=== PATIENT | female | born 1945 | race Caucasian/White ===

== ENCOUNTER 2020-05-31 00:39 | Emergency (ER) | payer MEDICARE, SELFPAY ==
[2020-05-31] VITALS (8 sets, daily range): BP systolic 140–184; BP diastolic 66–78; PULSE 66–79; RESP 17–18; TEMP 36.4; O2SAT 96–99; BMI 19.0
[2020-05-31] MEDS: SODIUM CHLORIDE 0.9% 1,000 ML 1000 ML IV (00:58)
[2020-05-31 01:08] LABS: Add Manual Diff / Slide Review NO; Basophils Absolute Auto 100 /uL (0-100); Basophils Percent Auto 1.1 % (0-2); Eosinophils Absolute Auto 100 /uL (0-450); Eosinophils Percent Auto 2.6 % (2-4); Hematocrit 37.9 % (36-46); Hemoglobin 12.6 g/dL (12.0-16.0); Lymphocytes Absolute Auto 1200 /uL (1100-4500); Lymphocytes Percent Auto 22.5 % (25-40); Mean Corpuscular HGB Conc 33.2 % (30-36); Mean Corpuscular Hemoglobin 29.1 PG (26-34); Mean Corpuscular Volume 87.7 fL (80-100); Monocytes Absolute Auto 800 /uL (0-900); Monocytes Percent Auto 15.1 % (3-14); Neutrophils Absolute Auto 3100 /uL (1500-7000); Neutrophils Percent Auto 58.7 % (50-75); Platelet Count 398 X10^3/uL (150-400); Red Blood Cell Count 4.32 X10^6/uL (4.0-5.2); Red Cell Distribution Width 12.7 % (11.6-14.8); White Blood Cell Count 5.4 X10^3/uL (4.5-11.0)
[2020-05-31 01:20] LABS: BUN Creatinine Ratio 36.8 (6-22); Blood Urea Nitrogen 21 mg/dL (7-17); Calcium 9.3 mg/dL (8.4-10.2); Carbon Dioxide 26 mmol/L (22-32); Chloride 106 mmol/L (98-107); Creatine Kinase 176 U/L (30-135); Estimated Glomerular Filt Rate > 60.0 mL/min (>60); Glucose 96 mg/dL (80-110); HEMOLYSIS < 15 (0-50); Sodium 138 mmol/L (137-145)
[2020-05-31 01:32] LABS: NT-proBNP (BNP-Adult 18+) 126 pg/mL (<450); Troponin I < 0.012 ng/mL (0.01-0.034)
[2020-05-31 01:38] LABS: Potassium 4.2 mmol/L (3.4-5.1)
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
[2020-05-31 02:04] LABS: CKMB % Relative Index 1.8 % (1.5-5.0); Creatine Kinase MB 3.09 ng/mL (<2.37)
== END 2020-05-31 02:35 | disposition home or self-care (01) ==
PROVIDERS: Emergency Provider Emergency Medicine
DX: R42 Dizziness and giddiness (principal); G47.00 Insomnia, unspecified; F03.90 Unspecified dementia, unspecified severity, without behavioral disturbance, psychotic disturbance, mood disturbance, and anxiety
CPT/HCPCS: 36415; 80048; 81003; 82550; 82553; 82962; 83880; 84484; 85025; 93005; 96360; 99284

== ENCOUNTER → 2020-07-31 12:21 | Outpatient (CLI) | payer MEDICARE, SELFPAY ==
--- NOTE | 2020-07-31 12:32 | DI.RAD.S_ITS ---
PROCEDURE: XR KNEE RT 3V INDICATIONS: RT KNEE PAIN, SWELLING POST FALL TECHNIQUE: 3 views of the knee were acquired. COMPARISON: None. FINDINGS: Bones: No fractures or dislocations. No suspicious bony lesions. There is moderate medial femorotibial joint space narrowing seen, with associated remodeling changes including subchondral sclerosis and osteophyte formation along the jointline. On the sunrise view, there is mild patellofemoral joint space narrowing seen. Osteophyte formation can be seen along the margins of the patella. Soft tissues: There is a small joint effusion. No suspicious soft tissue calcifications. IMPRESSION: Osteoarthritic degenerative changes are seen, which are most prominent involving the medial femorotibial compartment. Small joint effusion. If there is strong clinical suspicion for internal derangement of the knee, please consider a dedicated MRI for further evaluation (assuming that there is no contraindication to MRI). Dictated by: Denzel Boateng M.D. on 07/31/2020 at 12:01 Approved by: Denzel Boateng M.D. on 07/31/2020 at 12:02
== END ==
PROVIDERS: PCP Nurse Practitioner Family; Referring Provider Nurse Practitioner Family; Visit Provider Nurse Practitioner Family
DX: M25.561 Pain in right knee (principal); M25.461 Effusion, right knee
CPT/HCPCS: 73562

== ENCOUNTER 2022-12-20 03:46 | Emergency (ER) | payer MEDICARE, SELFPAY ==
[2022-12-20] VITALS (13 sets, daily range): BP systolic 149–190; BP diastolic 67–87; PULSE 71–84; RESP 18–27; TEMP 36.4–36.5; O2SAT 93–100
--- NOTE | 2022-12-20 03:51 | DI.RAD.S_ITS ---
PROCEDURE: XR CHEST 1V INDICATIONS: chest pain TECHNIQUE: One view of the chest was acquired. COMPARISON: None. FINDINGS: Surgical changes and devices: None. Lungs and pleura: Lungs are clear. No pleural effusions or pneumothorax. Mediastinum: Mediastinal contours appear normal. Heart size is normal. Bones and chest wall: No suspicious bony lesions. Overlying soft tissues appear unremarkable. IMPRESSION: No acute cardiopulmonary process. Agree with preliminary report. Dictated by: Javier Rubio M.D. on 12/20/2022 at 8:02 Approved by: Javier Rubio M.D. on 12/20/2022 at 8:06
[2022-12-20 04:04] LABS: Add Manual Diff / Slide Review NO; Basophils Absolute Auto 100 /uL (0-100); Basophils Percent Auto 0.9 % (0-2); Eosinophils Absolute Auto 300 /uL (0-450); Eosinophils Percent Auto 3.6 % (2-4); Hematocrit 35.6 % (36-46); Hemoglobin 11.3 g/dL (12.0-16.0); Lymphocytes Absolute Auto 1700 /uL (1100-4500); Lymphocytes Percent Auto 21.9 % (25-40); Mean Corpuscular HGB Conc 31.7 % (30-36); Mean Corpuscular Hemoglobin 24.8 PG (26-34); Mean Corpuscular Volume 78.1 fL (80-100); Monocytes Absolute Auto 1000 /uL (0-900); Monocytes Percent Auto 13.2 % (3-14); Neutrophils Absolute Auto 4800 /uL (1500-7000); Neutrophils Percent Auto 60.4 % (50-75); Platelet Count 524 X10^3/uL (150-400); Red Blood Cell Count 4.56 X10^6/uL (4.0-5.2); White Blood Cell Count 7.9 X10^3/uL (4.5-11.0)
[2022-12-20 04:08] LABS: Alanine Aminotransferase 18 IU/L (<35); Albumin 4.9 g/dL (3.5-5.0); Albumin Globulin Ratio 1.4 (1.0-2.8); Alkaline Phosphatase 76 U/L (38-126); Aspartate Aminotransferase 30 IU/L (14-36); BUN Creatinine Ratio 25.9 (6-22); Bilirubin Total 0.7 mg/dL (0.2-1.3); Blood Urea Nitrogen 14 mg/dL (7-17); Calcium 9.6 mg/dL (8.4-10.2); Carbon Dioxide 28 mmol/L (22-32); Chloride 100 mmol/L (98-107); Creatine Kinase 98 U/L (30-135); Estimated Glomerular Filt Rate > 60 mL/min (>60); Globulin 3.5 g/dL (1.7-4.1); Glucose 151 mg/dL (80-110); HEMOLYSIS 49 (0-50); Lipase 74 U/L (23-300); Potassium 4.4 mmol/L (3.4-5.1); Sodium 137 mmol/L (137-145); Total Protein 8.4 g/dL (6.3-8.2)
--- NOTE | 2022-12-20 04:14 | ED_ITS ---
HPI - Chest Pain General Chief Complaint: Chest Pain Stated Complaint: chest pain- sweaty Time Seen by Provider: 12/20/22 03:51 Source: patient and EMS Mode of arrival: EMS Limitations: no limitations History of Present Illness HPI narrative: Patient is a 77-year-old female who has dementia presents today with chest pain. She reports she did not go to sleep she started having left-sided pain. Sharp and stabbing in nature nonradiating. Lasting for about 30 minutes. She was having some shortness of breath and diaphoresis at the time but now is completely resolved. She is repeating the same stories which is normal for her. She received aspirin with EMS. She lives with her and her daughter. Related Data Allergies Allergy/AdvReac Type Severity Reaction Status Date / Time gluten Allergy Verified 05/31/20 01:18 Review of Systems Review of Systems ROS Unobtainable: All systems reviewed & are unremarkable except as noted in HPI and below Patient History Social History Smoking Status: Never smoker Smoking Status: Never smoker Substance Use Type: does not use Exam Initial Vital Signs Initial Vital Signs: Vital Signs Temperature 97.7 F 12/20/22 03:45 Pulse Rate 80 12/20/22 03:45 Respiratory Rate 18 12/20/22 03:45 Blood Pressure 190/87 H 12/20/22 03:45 Pulse Oximetry 99 12/20/22 03:45 Oxygen Delivery Method Room Air 12/20/22 03:45 GENERAL: Alert well-appearing 77-year-old female and in no acute distress. HEENT: Head atraumatic,EOMI, pupils reactive, face symmetric, moist mucous membranes CARDIOVASCULAR: Regular rate and rhythm without murmurs, rubs or gallops. RESPIRATORY: Breath sounds equal bilaterally, no wheezes rales or rhonchi. ABDOMEN: Soft, nontender. Normoactive bowel sounds all 4 quadrants. No guarding or rebound. EXTREMITIES: Normal range of motion, no clubbing or edema. Neurovascularly intact NEUROLOGICAL: Alert and oriented x2. SKIN: Warm, dry, no laceration, no petechiae, no rashes or lesions. Scores HEART Score Heart Score history: Slightly Suspicious Heart Score EKG: Normal Heart Score Age: > or = 65 years old Heart Score risk factors: 1-2 risk factors Heart Score troponin: < or = to normal limit Heart Score Total: 3 Course Orders Ordered: ED Orders 12/20/22 03:50 Complete Blood Count AUTO DIFF Stat Comprehensive Metabolic Panel Stat Lipase Stat Troponin & CK Cardiac Panel Stat 12/20/22 03:51 XR chest 1V Stat EKG-12 Lead Stat 12/20/22 05:50 Trop I [Troponin I] Stat Vital Signs Vital signs: Vital Signs - 8 hr 12/20/22 03:45 12/20/22 03:49 12/20/22 03:49 Temperature 97.7 F Pulse Rate 80 83 Respiratory Rate 18 Blood Pressure 190/87 H 190/83 H Pulse Oximetry 99 99 Oxygen Delivery Method Room Air 12/20/22 04:00 12/20/22 04:00 12/20/22 04:30 Temperature Pulse Rate 82 84 Respiratory Rate 22 18 Blood Pressure 178/69 H Pulse Oximetry 95 93 Oxygen Delivery Method 12/20/22 04:31 12/20/22 04:31 12/20/22 05:00 Temperature Pulse Rate 81 72 Respiratory Rate 27 H 22 Blood Pressure 171/74 H Pulse Oximetry 96 98 Oxygen Delivery Method 12/20/22 05:02 12/20/22 05:02 12/20/22 05:37 Temperature Pulse Rate 73 82 Respiratory Rate 27 H 26 H Blood Pressure 151/72 H Pulse Oximetry 98 100 Oxygen Delivery Method 12/20/22 05:39 12/20/22 05:39 12/20/22 06:00 Temperature Pulse Rate 72 71 Respiratory Rate 20 23 Blood Pressure 184/71 H Pulse Oximetry 99 98 Oxygen Delivery Method 12/20/22 06:01 12/20/22 06:01 12/20/22 06:30 Temperature Pulse Rate 72 Respiratory Rate 22 Blood Pressure 168/74 H 149/67 H Pulse Oximetry 96 Oxygen Delivery Method 12/20/22 06:30 12/20/22 06:44 Temperature 97.5 F L Pulse Rate 75 Respiratory Rate 26 H Blood Pressure Pulse Oximetry 98 Oxygen Delivery Method MDM - Chest Pain Lab Data 12/20/22 03:50 12/20/22 03:50 Labs: Lab Results 12/20/22 12/20/22 12/20/22 Range/Units 03:50 03:50 05:50 WBC 7.9 (4.5-11.0) X10^3/uL RBC 4.56 (4.0-5.2) X10^6/uL Hgb 11.3 L (12.0-16.0) g/dL Hct 35.6 L (36-46) % MCV 78.1 L (80-100) fL MCH 24.8 L (26-34) PG MCHC 31.7 (30-36) % RDW 21.0 H (11.6-14.8) % Plt Count 524 H (150-400) X10^3/uL Neut % (Auto) 60.4 (50-75) % Lymph % (Auto) 21.9 L (25-40) % [place] % (Auto) 13.2 (3-14) % Eos % (Auto) 3.6 (2-4) % Baso % (Auto) 0.9 (0-2) % Neut # (Auto) 4800 (1645-7733) /uL Lymph # (Auto) 1700 (6276-9891) /uL [place] # (Auto) 1000 H (0-900) /uL Eos # (Auto) 300 (0-450) /uL Baso # (Auto) 100 (0-100) /uL RBC Morphology See below Anisocytosis 3+ H Sodium 137 (137-145) mmol/L Potassium 4.4 (3.4-5.1) mmol/L Chloride 100 (98-107) mmol/L Carbon Dioxide 28 (22-32) mmol/L BUN 14 (7-17) mg/dL Creatinine 0.54 (0.52-1.04) mg/dL Estimated GFR > 60 (>60) mL/min BUN/Creatinine Ratio 25.9 H (6-22) Glucose 151 H (80-110) mg/dL Calcium 9.6 (8.4-10.2) mg/dL Total Bilirubin 0.7 (0.2-1.3) mg/dL AST 30 (14-36) IU/L ALT 18 (<35) IU/L Alkaline Phosphatase 76 (38-126) U/L Total Creatine Kinase 98 (30-135) U/L CK-MB (CK-2) TNP CK-MB (CK-2) Rel Index TNP Troponin I < 0.012 < 0.012 (0.01-0.034) ng/mL Total Protein 8.4 H (6.3-8.2) g/dL Albumin 4.9 (3.5-5.0) g/dL Globulin 3.5 (1.7-4.1) g/dL Albumin/Globulin Ratio 1.4 (1.0-2.8) Lipase 74 (23-300) U/L Imaging Data Chest x-ray: My Impression: No acute cardiopulmonary process Radiologist's Impression: No acute cardiopulmonary abnormality ECG Data Interpretation: Sinus rhythm rate 72 [place] interval 120 QRS 74 QTC 420 PVC noted no acute ischemic changes EKG 2. Sinus rhythm no changes MDM Narrative Medical decision making narrative: Patient healthy 77-year-old female history of dementia presenting to chest pain. She is 2- troponins normal EKG heart score is 3. Blood work is otherwise reassuring no leukocytosis anemia electrolyte abnormality or MARICARMEN. She is been chest pain-free and sleeping here in the emergency department. Daughter is at bedside. Patient is not tachycardic or hypoxic. I think unlikely to be low risk for pulmonary embolism, low that was considered. Blood pressure initially quite high 190/87 came down have any intervention. She is an appointment with her primary care provider in a couple of days. Went over with daughter may need further cardiac testing and to return if needed. Able to take her. Differential diagnosis includes acute coronary syndrome, pneumonia, pulmonary embolism, pneumothorax Discharge Plan Departure Patient Disposition: Home Clinical Impression: Atypical chest pain Instructions: DI for Atypical Chest Pain Activity Restrictions/Additional Instructions: *You have been diagnosed with atypical chest pain *What to do: At this time please follow-up with primary care provider. You may require further cardiac testing *Continue to take medications as directed *Follow up with your primary care provider in 2-3 days or call [phone] *Return to ER if you should have increasing chest pain shortness of breath nausea or any new, worsening or concerning symptoms Referrals: Ave Flanagan ARNP [Primary Care Provider] - Stand Alone Forms: Patient Portal/API
[2022-12-20 04:20] LABS: Troponin I < 0.012 ng/mL (0.01-0.034)
[2022-12-20 04:48] LABS: Anisocytosis 3+
[2022-12-20 06:20] LABS: Troponin I < 0.012 ng/mL (0.01-0.034)
== END 2022-12-20 06:45 | disposition home or self-care (01) ==
PROVIDERS: Emergency Provider Emergency Medicine; PCP Nurse Practitioner Family
DX: R07.89 Other chest pain (principal)
CPT/HCPCS: 36415; 71045; 80053; 82550; 83690; 84484; 85025; 93005; 93010; 99283; 99284

== ENCOUNTER 2023-10-13 22:24 | Emergency (ER) | payer MEDICARE, SELFPAY ==
--- NOTE | 2023-10-13 22:30 | ED.GENADULT ---
HPI - General Adult General Chief complaint: Upper Respiratory Symptoms Stated complaint: abd pain Time Seen by Provider: 10/13/23 22:27 History of Present Illness HPI narrative: 78-year-old female with history of dementia presents by EMS from home for upper abdominal pain and possible bloody stools. History obtained from EMS as well as daughter at bedside, as the patient is pleasant but very confused with repetitive questions and thought processes. EMS state that patient called for abdominal pain and bloody stools. She lives in a triplex below her daughter, and as the patient was being loaded onto the stretcher the daughter came outside and asked medics what they were doing. When they told the daughter that the patient was complaining of belly pain and bloody stools the daughter states that patient has dementia, occasionally calls 911 without reason, and sometimes makes things up when she gets confused. Daughter states that family has been with the patient all day long and she has been in good spirits. She has complained of mild upper abdominal pain secondary to a nonproductive cough that she was having, but family reassured the patient that her abdomen was sore from the coughing. Patient was last seen approximately 1.5 hours ago by family and she was in good health at that time. Daughter states that next thing she knows the ambulance has been called. Patient at various times has complained of vomiting blood, having bloody stools, and having blood in her urine. Patient's clothes are clean, there is no blood noted anywhere on the patient's body or on the stretcher. Related Data Home Medications Medication Instructions Recorded Confirmed gabapentin 100 mg capsule 100 mg PO 10/13/23 metformin 500 mg tablet 500 mg PO DAILY 10/13/23 10/13/23 Allergies Allergy/AdvReac Type Severity Reaction Status Date / Time gluten Allergy Verified 05/31/20 01:18 Review of Systems Review of Systems Narrative: Negative except as noted above Patient History Social History Smoking Status: Never smoker Smoking Status: Never smoker Substance Use Type: does not use Exam Initial Vital Signs Initial Vital Signs: Vital Signs Temperature 99.1 F 10/13/23 22:40 Pulse Rate 87 10/13/23 22:40 Respiratory Rate 16 10/13/23 22:40 Blood Pressure 162/87 H 10/13/23 22:40 Pulse Oximetry 98 10/13/23 22:40 Oxygen Delivery Method Room Air 10/13/23 22:40 Const: Awake, alert, no acute distress, nontoxic appearing ENT: Atraumatic, no gross blood, mucous membranes moist Cardiac: regular rate, regular rhythm RESP: unlabored, clear bilaterally, no wheezing GI: Atraumatic, soft, nontender, nondistended, no rebound, no guarding Rectal: nurse buckle frame shaper present, no gross blood, no melena Skin: Warm, Dry, intact, no rashes Neuro: AO x2, CN II-XII grossly intact, moves all extremities Course Orders Ordered: ED Orders 10/13/23 22:50 UA Complete [Urinalysis and Microscopic] Stat Urine Culture Stat 10/13/23 23:01 CT abdomen pelvis w con Stat 10/13/23 23:15 CBC Auto Diff [Complete Blood Count AUTO DIFF] Stat CMP [Comprehensive Metabolic Panel] Stat Vital Signs Vital signs: Vital Signs - 8 hr 10/13/23 22:40 10/13/23 22:43 10/13/23 23:03 Temperature 99.1 F Pulse Rate 87 89 88 Respiratory Rate 16 Blood Pressure 162/87 H Pulse Oximetry 98 100 100 Oxygen Delivery Method Room Air 10/13/23 23:17 10/13/23 23:17 10/13/23 23:30 Temperature Pulse Rate 89 Respiratory Rate Blood Pressure 171/76 H 164/72 H Pulse Oximetry 99 Oxygen Delivery Method 10/13/23 23:30 10/14/23 00:44 Temperature Pulse Rate 89 99 H Respiratory Rate 16 Blood Pressure 171/101 H Pulse Oximetry 99 96 Oxygen Delivery Method Room Air Medical Decision Making Lab Data 10/13/23 23:15 10/13/23 23:15 Labs: Lab Results 10/13/23 10/13/23 Range/Units 22:50 23:15 WBC 10.5 (4.5-11.0) X10^3/uL RBC 4.26 (4.0-5.2) X10^6/uL Hgb 12.4 (12.0-16.0) g/dL Hct 37.2 (36-46) % MCV 87.4 (80-100) fL MCH 29.1 (26-34) PG MCHC 33.2 (30-36) % RDW 13.8 (11.6-14.8) % Plt Count 479 H (150-400) X10^3/uL Neut % (Auto) 74.1 (50-75) % Lymph % (Auto) 12.3 L (25-40) % [place] % (Auto) 10.4 (3-14) % Eos % (Auto) 2.6 (2-4) % Baso % (Auto) 0.6 (0-2) % Neut # (Auto) 7800 H (3761-4393) /uL Lymph # (Auto) 1300 (4007-7553) /uL [place] # (Auto) 1100 H (0-900) /uL Eos # (Auto) 300 (0-450) /uL Baso # (Auto) 100 (0-100) /uL Sodium 137 (137-145) mmol/L Potassium 3.7 (3.4-5.1) mmol/L Chloride 99 (98-107) mmol/L Carbon Dioxide 28 (22-32) mmol/L BUN 14 (7-17) mg/dL Creatinine 0.53 (0.52-1.04) mg/dL Estimated GFR > 60 (>60) mL/min BUN/Creatinine Ratio 26.4 H (6-22) Glucose 223 H (80-110) mg/dL Calcium 9.4 (8.4-10.2) mg/dL Total Bilirubin 0.5 (0.2-1.3) mg/dL AST 29 (14-36) IU/L ALT 18 (<35) IU/L Alkaline Phosphatase 93 (38-126) U/L Total Protein 7.8 (6.3-8.2) g/dL Albumin 4.2 (3.5-5.0) g/dL Globulin 3.6 (1.7-4.1) g/dL Albumin/Globulin Ratio 1.2 (1.0-2.8) Urine Color Yellow Urine Appearance Clear Urine pH 7.0 (4.5-8.0) Ur Specific [place] <=1.005 (1.000-1.035) Urine Protein Negative (Negative) Urine Glucose (UA) 1+ H (Negative) g/dL Urine Ketones Negative (NEGATIVE) Urine Occult Blood Negative (Negative) Urine Nitrate Negative (Negative) Urine Bilirubin Negative (NEGATIVE) Urine Urobilinogen 0.2 (0.2) E.U./dL Ur Leukocyte Esterase 1+ H (NEGATIVE) Urine RBC None seen (0-5/HPF) Urine WBC 5-10/hpf H (0-5/HPF) Ur Squamous Epith Cells 0-1 /hpf (0-5/HPF) Ur Transition Epith Cell 0-1/hpf (0-5/HPF) Urine Bacteria Moderate (10-30) H (None) Ur Culture Indicated? Specimen cultured Vol Urine Centrifuged 10ml (spun) MDM Narrative Medical decision making narrative: Well-appearing but confused patient with possible bleeding. Daughter denies patient ever having history of bleeding from the mouth, rectum, or urine, patient does not take blood thinners, up until 1-1/2 hours ago patient was in her usual state of health. Shared decision-making had with daughter and patient at bedside. Daughter would like basic workup to ensure that ?nothing is wrong?. Laboratory work is reviewed, hemoglobin 12.4, BUN 14, creatinine 0.53. Urinalysis has trace leukocyte esterase with some bacteria, however patient denies frequency, dysuria, there was no blood in the urine. There has been no episodes of bleeding witnessed while patient has been in the emergency department. Since patient is denying any urinary symptoms, has no suprapubic or flank discomfort, or leukocytosis plan to defer treatment at this time, urine culture has been sent and is pending. Daughter counseled to ensure that patient increases fluid consumptom. Discharge Plan Departure Patient Disposition: Home Clinical Impression: Upper respiratory infection Instructions: Cough Prescriptions: No Action gabapentin 100 mg capsule 100 mg PO metformin 500 mg tablet 500 mg PO DAILY Referrals: Ave Flanagan ARNP [Non-Staff] - Stand Alone Forms: Patient Portal/API
[2023-10-13 22:40] VITALS: BP 162/87; PULSE 87; RESP 16; TEMP 37.3; O2SAT 98
[2023-10-13 22:43] VITALS: PULSE 89; O2SAT 100
--- NOTE | 2023-10-13 23:01 | DI.CT.S_ITS ---
PROCEDURE: CT ABDOMEN PELVIS W CON INDICATIONS: midepigastric pn, possible hematuria? TECHNIQUE: After the administration of intravenous contrast, axial sections acquired from the lung bases to the pubic symphysis. Coronal and sagittal reformats were performed. For radiation dose reduction, the following was used: automated exposure control, adjustment of mA and/or kV according to patient size. COMPARISON: None. FINDINGS: Image quality: Diagnostic. Lower Chest: Lung bases are clear. Moderate-large sized hiatal hernia. ABDOMEN: Liver: No solid mass. Gallbladder: Status post cholecystectomy. Biliary ducts: No biliary dilation. Pancreas: No ductal dilation. Spleen: Size is within normal limits. Adrenal Glands: No adrenal nodules. Kidneys and Ureters: No hydronephrosis. No solid mass. No complex renal cystic lesion which requires follow up. Stomach and Bowel: Normal colonic caliber, without significant wall thickening. Moderate scattered colonic diverticula involving the descending and sigmoid colon. No evidence for acute diverticulitis. The appendix is not definitively visualized. However, no secondary findings of acute inflammation are noted in the right lower quadrant. Peritoneum: No abnormal intraperitoneal fluid. No free air. Ventral Wall: There is a fat-containing umbilical hernia without acute inflammation. Abdominal Nodes: No retroperitoneal or mesenteric adenopathy by size criteria. Vessels: Scattered atherosclerotic calcifications of the abdominal aorta and iliac vessels without aneurysmal dilatation. The inferior vena cava appears patent. PELVIS: Pelvic Organs: Unremarkable. Bladder: No bladder wall thickening, accounting for underdistention. Pelvic Nodes: No enlarged lymph nodes. Miscellaneous: No inguinal hernias are seen. Bones: No aggressive osseous abnormality. No acute vertebral body compression fractures. Multilevel spondylitic changes throughout the imaged spine. No suspicious osseous lesions. Grade 1 anterolisthesis of L4 on L5 secondary to L4 pars defects. IMPRESSION: CT abdomen and pelvis without acute abnormalities. No evidence for obstructive uropathy. Colonic diverticulosis without acute diverticulitis. Multilevel lumbar spondylosis with grade 1 anterolisthesis of L4 on L5 secondary to L4 pars defects. Atherosclerosis. Dictated by: Roshan Ramirez M.D. on 10/14/2023 at 0:18 Approved by: Roshan Ramirez M.D. on 10/14/2023 at 0:24
[2023-10-13 23:03] VITALS: PULSE 88; O2SAT 100
[2023-10-13 23:17] VITALS: BP 171/76; PULSE 89; O2SAT 99
[2023-10-13 23:24] LABS: Appearance Urine UA CLEAR; Bilirubin Urine UA NEGATIVE (NEGATIVE); Color Urine UA YELLOW; Glucose Urine UA 1+ g/dL (Negative); Ketones Urine UA NEGATIVE (NEGATIVE); Leukocyte Esterase Urine UA 1+ (NEGATIVE); Nitrite Urine UA NEGATIVE (Negative); Occult Blood Urine UA NEGATIVE (Negative); Protein Urine UA NEGATIVE (Negative); Specific Gravity Urine UA <=1.005 (1.000-1.035); Urobilinogen Urine UA 0.2 E.U./dL (0.2)
[2023-10-13 23:30] VITALS: BP 164/72; PULSE 89; O2SAT 99
[2023-10-13 23:31] LABS: Bacteria Urine Moderate (10-30); Culture Indicated Urine Specimen Cultured; RBC Urine None Seen (0-5/HPF); Squamous Epithelial Cell Urine 0-1 /HPF (0-5/HPF); Transitional Epi Cells Urine 0-1/HPF (0-5/HPF); Urine Volume 10mL (spun); WBC Urine 5-10/HPF (0-5/HPF)
[2023-10-13 23:33] LABS: Add Manual Diff / Slide Review NO; Basophils Absolute Auto 100 /uL (0-100); Basophils Percent Auto 0.6 % (0-2); Eosinophils Absolute Auto 300 /uL (0-450); Eosinophils Percent Auto 2.6 % (2-4); Hematocrit 37.2 % (36-46); Hemoglobin 12.4 g/dL (12.0-16.0); Lymphocytes Absolute Auto 1300 /uL (1100-4500); Lymphocytes Percent Auto 12.3 % (25-40); Mean Corpuscular HGB Conc 33.2 % (30-36); Mean Corpuscular Hemoglobin 29.1 PG (26-34); Mean Corpuscular Volume 87.4 fL (80-100); Monocytes Absolute Auto 1100 /uL (0-900); Monocytes Percent Auto 10.4 % (3-14); Neutrophils Absolute Auto 7800 /uL (1500-7000); Neutrophils Percent Auto 74.1 % (50-75); Platelet Count 479 X10^3/uL (150-400); Red Blood Cell Count 4.26 X10^6/uL (4.0-5.2); Red Cell Distribution Width 13.8 % (11.6-14.8); White Blood Cell Count 10.5 X10^3/uL (4.5-11.0)
[2023-10-13 23:37] LABS: Alanine Aminotransferase 18 IU/L (<35); Albumin 4.2 g/dL (3.5-5.0); Albumin Globulin Ratio 1.2 (1.0-2.8); Alkaline Phosphatase 93 U/L (38-126); Aspartate Aminotransferase 29 IU/L (14-36); BUN Creatinine Ratio 26.4 (6-22); Bilirubin Total 0.5 mg/dL (0.2-1.3); Blood Urea Nitrogen 14 mg/dL (7-17); Calcium 9.4 mg/dL (8.4-10.2); Carbon Dioxide 28 mmol/L (22-32); Chloride 99 mmol/L (98-107); Estimated Glomerular Filt Rate > 60 mL/min (>60); Globulin 3.6 g/dL (1.7-4.1); Glucose 223 mg/dL (80-110); HEMOLYSIS < 15 (0-50); Potassium 3.7 mmol/L (3.4-5.1); Sodium 137 mmol/L (137-145); Total Protein 7.8 g/dL (6.3-8.2)
[2023-10-14 00:44] VITALS: BP 171/101; PULSE 99; RESP 16; O2SAT 96
== END 2023-10-14 00:45 | disposition home or self-care (01) ==
PROVIDERS: Emergency Provider Emergency Medicine
DX: J06.9 Acute upper respiratory infection, unspecified (principal); R10.13 Epigastric pain
CPT/HCPCS: 36415; 74177; 80053; 81001; 85025; 87077; 87086; 87186; 99284; Q9967